=== PATIENT | male | born 1975 | race African-American/Black ===

== ENCOUNTER 2018-03-13 09:40 | Emergency (ER) | payer MEDICAID ==
[~2018-03-13] VITALS: Ht 175.3 cm; Wt 93.0 kg
[2018-03-13] MEDS ORDERED: HYDROCODONE/ACETAMINOPHEN 5-325 MG TABLET PO ONE (12:15)
[2018-03-13] MEDS ORDERED: KETOROLAC TROMETHAMINE 60 MG/2 ML VIAL IM ONE (12:15)
[2018-03-13 13:08] VITALS: BP 165/81
== END 2018-03-13 13:10 | disposition home or self-care (01) ==
LOC: EMS 09:41
DX: S63.617A Unspecified sprain of left little finger, initial encounter (principal); I10 Essential (primary) hypertension; F17.210 Nicotine dependence, cigarettes, uncomplicated; W01.0XXA Fall on same level from slipping, tripping and stumbling without subsequent striking against object, initial encounter; Y93.89 Activity, other specified; Y92.89 Other specified places as the place of occurrence of the external cause; Y99.8 Other external cause status
CPT/HCPCS: 29130; 73130; 96372; 99283; 99406; J1885; 29280

== ENCOUNTER 2020-02-11 04:36 | Emergency (ER) | payer MEDICAID ==
[~2020-02-11] VITALS: Ht 175.3 cm; Wt 95.5 kg
[2020-02-11] MEDS ORDERED: KETOROLAC TROMETHAMINE 30 MG/ML VIAL IM ONE (05:15)
[2020-02-11 07:01] VITALS: BP 119/65
== END 2020-02-11 07:10 | disposition home or self-care (01) ==
LOC: EMS 04:39
DX: S52.251A Displaced comminuted fracture of shaft of ulna, right arm, initial encounter for closed fracture (principal); W01.0XXA Fall on same level from slipping, tripping and stumbling without subsequent striking against object, initial encounter; Y93.89 Activity, other specified; Y92.89 Other specified places as the place of occurrence of the external cause; Y99.8 Other external cause status
CPT/HCPCS: 29125; 73090; 96372; 99283; J1885